=== PATIENT | male | born 1970 | race Hispanic/Latino ===

== ENCOUNTER 2020-06-09 23:56 | Emergency (ER) | payer SELFPAY ==
[~2020-06-09] VITALS: Ht 185.4 cm; Wt 117.9 kg
[~2020-06-09 23:56] MED LIST: CYCLOBENZAPRINE5 MG PO; IBUPROFEN200 MG PO; NAPROXEN250 MG PO
[2020-06-10] MEDS ORDERED: ASPIRIN 81 MG CHEW TAB PO ONE (00:45)
[2020-06-10] MEDS ORDERED: ACETAMINOPHEN 325 MG TAB PO ONE (00:45)
[2020-06-10 00:54] LABS: BASOPHILS % 0.2 % (0.0-1.0); EOSINOPHILS % 0.2 % (0.0-6.0); HEMATOCRIT 49.4 % (38.2-49.6); HEMOGLOBIN 16.6 g/dL (14.0-18.0); LYMPHOCYTES # (AUTO) 1.3 (1.0-3.2); MEAN CORPUSCULAR HEMOGLOBIN 29.8 pg (28-32); MEAN CORPUSCULAR HGB CONC 33.6 g/dL (31-35); MEAN CORPUSCULAR VOLUME 88.7 fL (81-99); MONOCYTES # (AUTO) 0.6 (0.2-0.8); MONOCYTES % 10.6 % (4.4-11.3); NEUTROPHILS # (AUTO) 3.5 (2.1-6.9); NEUTROPHILS % 64.6 % (38.7-80.0); PLATELET COUNT 162 x10e3/uL (140-360); RED BLOOD COUNT 5.57 x10e6/uL (4.3-5.7); RED CELL DISTRIBUTION WIDTH 11.6 % (11.7-14.4)
[2020-06-10 01:07] LABS: ALANINE AMINOTRANSFERASE 38 IU/L (0-55); ALBUMIN 4.2 g/dL (3.5-5.0); ALBUMIN/GLOBULIN RATIO 1.1 (0.8-2.0); ALKALINE PHOSPHATASE 87 IU/L (40-150); ANION GAP 17.3 mmol/L (8-16); BLOOD UREA NITROGEN 14 mg/dL (7-26); BUN/CREATININE RATIO 13 (6-25); CALCIUM 8.6 mg/dL (8.4-10.2); CARBON DIOXIDE 24 mmol/L (22-29); CHLORIDE 98 mmol/L (98-107); CREATINE KINASE 56 IU/L (30-200); CREATININE, SERUM 1.09 mg/dL (0.72-1.25); EST GLOMERULAR FILTRATION RATE > 60 ML/MIN (60-); GLUCOSE 117 mg/dL (74-118); POTASSIUM 4.3 mmol/L (3.5-5.1); SODIUM 135 mmol/L (136-145)
[2020-06-10] MEDS ORDERED: IBUPROFEN 600 MG TAB PO STA (01:57)
[2020-06-11] MEDS ORDERED: ZOFRAN4 MG SL (10:11)
[2020-06-11] MEDS ORDERED: TYLENOL # 31 EA PO (10:11)
== END 2020-06-10 01:58 | disposition home or self-care (01) ==
LOC: ER 06-10 00:45
DX: U07.1 COVID-19 (principal)
CPT/HCPCS: 36415; 71045; 80053; 82550; 82553; 84484; 85025; 87400; 93005; 99283; U0002

== ENCOUNTER 2020-06-11 09:37 | Emergency (ER) | payer SELFPAY ==
[~2020-06-11] VITALS: Ht 185.4 cm; Wt 117.9 kg
[2020-06-11] MEDS ORDERED: ZOFRAN4 MG SL (10:11)
[2020-06-11] MEDS ORDERED: TYLENOL # 31 EA PO (10:11)
== END 2020-06-11 10:20 | disposition home or self-care (01) ==
LOC: ER 10:06
DX: U07.1 COVID-19 (principal)
CPT/HCPCS: 99283

== ENCOUNTER 2021-12-09 17:22 | Emergency (ER) | payer SELFPAY ==
[~2021-12-09] VITALS: Ht 185.4 cm; Wt 117.9 kg
[~2021-12-09 17:22] MED LIST changes: +TYLENOL # 31 EA PO; +ZOFRAN4 MG SL
== END 2021-12-09 19:02 | disposition home or self-care (01) ==
LOC: ER 17:27
DX: R50.9 Fever, unspecified (principal); U07.1 COVID-19; M54.9 Dorsalgia, unspecified; G89.29 Other chronic pain
CPT/HCPCS: 0223U; 36415; 71046; 99282

== ENCOUNTER 2022-01-04 11:00 | Emergency (ER) | payer SELFPAY ==
[~2022-01-04] VITALS: Ht 185.4 cm; Wt 117.9 kg
[2022-01-04] MEDS ORDERED: ASPIRIN 81 MG CHEW TAB PO ONE (11:45)
[2022-01-04 11:56] LABS: BASOPHILS # (AUTO) 0.1 (0.0-0.1); BASOPHILS % 0.9 % (0.0-1.0); EOSINOPHILS # (AUTO) 0.3 (0.0-0.4); EOSINOPHILS % 3.6 % (0.0-6.0); HEMATOCRIT 47.6 % (38.2-49.6); HEMOGLOBIN 15.7 g/dL (14.0-18.0); LYMPHOCYTES # (AUTO) 2.6 (1.0-3.2); LYMPHOCYTES % 38.2 % (18.0-39.1); MEAN CORPUSCULAR HEMOGLOBIN 30.3 pg (28-32); MEAN CORPUSCULAR VOLUME 91.9 fL (81-99); MONOCYTES # (AUTO) 0.6 (0.2-0.8); MONOCYTES % 8.2 % (4.4-11.3); NEUTROPHILS # (AUTO) 3.4 (2.1-6.9); NEUTROPHILS % 48.8 % (38.7-80.0); PLATELET COUNT 237 x10e3/uL (140-360); RED BLOOD COUNT 5.18 x10e6/uL (4.3-5.7); RED CELL DISTRIBUTION WIDTH 11.9 % (11.7-14.4)
[2022-01-04 12:20] LABS: ALANINE AMINOTRANSFERASE 34 IU/L (0-55); ALBUMIN 4.2 g/dL (3.5-5.0); ALBUMIN/GLOBULIN RATIO 1.3 (0.8-2.0); ALKALINE PHOSPHATASE 97 IU/L (40-150); ANION GAP 18.8 mmol/L (8-16); BLOOD UREA NITROGEN 8 mg/dL (7-26); BUN/CREATININE RATIO 8 (6-25); CALCIUM 8.7 mg/dL (8.4-10.2); CARBON DIOXIDE 24 mmol/L (22-29); CHLORIDE 105 mmol/L (98-107); CREATINE KINASE 113 IU/L (30-200); GLUCOSE 107 mg/dL (74-118); POTASSIUM 3.8 mmol/L (3.5-5.1); SODIUM 144 mmol/L (136-145)
[2022-01-04 12:58] VITALS: BP 142/81
[2022-01-04] MEDS ORDERED: IOPAMIDOL 370 MG/ML 100 ML INFUS..BTL INJ ONE (13:09)
== END 2022-01-04 12:59 | disposition home or self-care (01) ==
LOC: ER 11:09
DX: R06.02 Shortness of breath (principal); R07.89 Other chest pain; R42 Dizziness and giddiness; M54.9 Dorsalgia, unspecified; G89.29 Other chronic pain; F17.210 Nicotine dependence, cigarettes, uncomplicated; Z20.822 Contact with and (suspected) exposure to COVID-19
CPT/HCPCS: 36415; 71045; 80053; 82550; 82553; 83880; 84484; 85025; 93005; 94760; 99284; U0002; Q9967

== ENCOUNTER 2024-02-18 10:07 | Emergency (ER) | payer SELFPAY ==
[~2024-02-18] VITALS: Ht 185.4 cm; Wt 117.9 kg
[2024-02-18 10:14] VITALS: PULSE 76; RESP 16; TEMP 98.8; O2SAT 100
[2024-02-18] MEDS ORDERED: AMOX TR-K CLV1 EAC2 PO (10:20)
== END 2024-02-18 10:25 | disposition home or self-care (01) ==
LOC: ER 10:10
DX: S60.571A Other superficial bite of hand of right hand, initial encounter (principal); W55.01XA Bitten by cat, initial encounter; Y92.89 Other specified places as the place of occurrence of the external cause; M54.9 Dorsalgia, unspecified; G89.29 Other chronic pain
CPT/HCPCS: 99282